=== PATIENT | female | born 1960 | race Caucasian/White ===

== ENCOUNTER 2021-01-20 06:15 | Day surgery (SDC) | payer OTHER ==
[~2021-01-20] VITALS: Ht 162.6 cm; Wt 74.3 kg
[~2021-01-20 06:15] MED LIST: IRON; PROG100 PO; RXSULTRIDS PO
--- NOTE | 2021-01-20 06:54 | NUR ---
01/20/21 0654 Lew Cornejo 0632-Tetracaine 1 drop in left eye. Plagett placed in left eye at 0633
== END 2021-01-20 08:10 | disposition home or self-care (01) ==
LOC: ORSCSDS 06:15
PROVIDERS: Ophthalmology
PROC: 08RK3JZ Replacement of Left Lens with Synthetic Substitute, Percutaneous Approach (ICD-10-PCS; principal; 2021-01-20 07:30)
DX: H25.12 Age-related nuclear cataract, left eye (principal)
CPT/HCPCS: J2001; J2250; J3301; J7040; V2632

== ENCOUNTER 2021-09-03 07:00 | Day surgery (SDC) | payer OTHER ==
[~2021-09-03] VITALS: Ht 162.6 cm; Wt 69.7 kg
--- NOTE | 2021-09-03 08:22 | NUR ---
09/03/21 0822 Gabriela Jimenez History, Chart, Medications and Allergies reviewed before start of procedure. Patient confirms NPO status and agrees with scheduled surgery. 3-LEAD EKG REVIEWED WITH PHYSICIAN PRIOR TO START OF PROCEDURE. MONITOR INTACT WITH CONTINUOUS PULSE OXIMETRY AND INTERMITTENT BP. PATIENT DETERMINED TO BE ASA APPROPRIATE FOR PROPOFOL SEDATION PRIOR TO START OF PROCEDURE BY DR. LUA.
--- NOTE | 2021-09-03 08:54 | NUR ---
Discharge instructions reviewed with patient. Patient verbalizes understanding. Copy given to patient to take home. Patient States Post-Procedure ride home has been arranged. Discharged via wheelchair to private car for ride home.
== END 2021-09-03 12:00 | disposition home or self-care (01) ==
LOC: ORSCMMR 07:00 → ORD 08:00 → ORSCSDS 08:00 → ORSCMMR 12:00
PROVIDERS: Surgery
PROC: 0DJD8ZZ Inspection of Lower Intestinal Tract, Via Natural or Artificial Opening Endoscopic (ICD-10-PCS; principal; 2021-09-03 08:00)
DX: Z12.11 Encounter for screening for malignant neoplasm of colon (principal); Z80.0 Family history of malignant neoplasm of digestive organs; K57.30 Diverticulosis of large intestine without perforation or abscess without bleeding; D64.9 Anemia, unspecified
CPT/HCPCS: J2704; J7120

== ENCOUNTER → 2024-07-17 | Outpatient (CLI) | payer BC ==
[2024-07-18 10:42] LABS: Bacterial Vaginosis PCR Negative (NEGATIVE); Candida Group, PCR NOT DETECTED (NOT DETECT); Candida glabrata-krusei, PCR NOT DETECTED (NOT DETECT)
[2024-08-01 13:09] LABS: HPV HIGH RISK BY TMA Not Detected; HPV SOURCE Vaginal
== END ==
LOC: LAB 16:52 → LAB SHORT 16:52
PROVIDERS: Obstetrics & Gynecology
DX: N89.8 Other specified noninflammatory disorders of vagina (principal); N95.0 Postmenopausal bleeding
CPT/HCPCS: 87481; 87624; 87661; 87801; G0123